=== PATIENT | male | born 1950 | race Caucasian/White ===

== ENCOUNTER 2016-11-26 09:00 | Inpatient (IN) | payer OTHER ==
[2016-11-18 15:24] LABS: BASOPHILS % (AUTO) 0.5 % (0.0-2.0); EOSINOPHILS # (AUTO) 0.2 K/uL (0.0-0.4); EOSINOPHILS % (AUTO) 2.5 % (0.0-4.0); HEMATOCRIT 39.4 % (36-54); HEMOGLOBIN 13.4 g/dL (14.0-18.0); LYMPHOCYTES # (AUTO) 2.4 K/uL (1.0-5.5); MEAN CORPUSCULAR HEMOGLOBIN 30 pg (27-31); MEAN CORPUSCULAR HGB CONC 34 % (32-36); MEAN CORPUSCULAR VOLUME 89 fL (79.0-98.0); MONOCYTES # (AUTO) 0.4 K/uL (0.0-1.0); MONOCYTES % (AUTO) 6.8 % (1.7-9.3); NEUTROPHILS # (AUTO) 3.4 K/uL (1.8-7.7); NEUTROPHILS % (AUTO) 53.2 % (40.0-70.0); PLATELET COUNT (AUTO) 374 K/uL (130-430); RED BLOOD CELL COUNT(AUTO) 4.41 MIL/uL (4.2-6.2); RED CELL DISTRIBUTION WIDTH 13.7 % (9.0-15.0); WHITE BLOOD COUNT (AUTO) 6.4 K/uL (4.8-10.8)
[2016-11-18 15:32] LABS: CALCIUM 9.5 mg/dL (8.4-11.0); CREATININE 0.77 mg/dL (0.55-1.30); POTASSIUM 4.4 mmol/L (3.5-5.1)
[2016-11-18 15:37] LABS: BILIRUBIN,URINE NEGATIVE (NEGATIVE); BLOOD, URINE NEGATIVE (NEGATIVE); COLOR,URINE YELLOW (YELLOW); GLUCOSE,URINE NEGATIVE (NEGATIVE); KETONES,URINE NEGATIVE (NEGATIVE); LEUKOCYTE ESTERASE ,URINE NEGATIVE (NEGATIVE); NITRITE, URINE NEGATIVE (NEGATIVE); PH,URINE 5.5 (5.0-8.0); PROTEIN URINE NEGATIVE (NEGATIVE); UROBILINOGEN,URINE 0.2 (0.2-1.0)
[2016-11-18 15:39] LABS: CLARITY/URINE CLEAR (CLEAR)
[~2016-11-26] VITALS: Ht 172.7 cm; Wt 79.8 kg
[2016-11-26] MEDS ORDERED: VANCOMYCIN HCL 1 GM/NS PREMIX 250 ML IV ONE (09:45)
[2016-11-26] MEDS ORDERED: ceFAZolin SODIUM 2 GM in D5W 100 ML IV ONE (09:45)
[2016-11-26] MEDS ORDERED: TRANEXAMIC ACID 1,000 MG/10 ML VIAL IV ONE ×2 (10:00→14:00)
[2016-11-26] MEDS ORDERED: POLYMYXIN 500,000/BACIT.10,000 UNITS in NS IRR 1 L IR ONE (11:14)
[2016-11-26] MEDS ORDERED: AMLO5TAB4 PO (12:45)
[2016-11-26] MEDS ORDERED: TOPXL100 PO (12:45)
[2016-11-26] MEDS ORDERED: ASPI-1063 PO (12:45)
[2016-11-26] MEDS ORDERED: LOSA100T11 PO (12:45)
[2016-11-26] MEDS ORDERED: FERR140T PO (12:46)
[2016-11-26] MEDS ORDERED: MORPHINE SULFATE 10MG/10ML PF AMP ONE (14:00)
[2016-11-26] MEDS ORDERED: NS 100 ML BAG IV ONE (14:00)
[2016-11-26] MEDS ORDERED: VANCOMYCIN HCL 1000 MG/VIAL IV ONE (14:00)
[2016-11-26] MEDS ORDERED: MIDAZOLAM HCL 5 MG/5 ML VIAL ONE (14:00)
[2016-11-26] MEDS ORDERED: PROPOFOL 200MG/ 20ML VIAL (DIPRIVAN) IV ONE (14:00)
[2016-11-26] MEDS ORDERED: NORMAL SALINE 10 ML VIAL ONE (14:00)
[2016-11-26] MEDS ORDERED: ONDANSETRON HCL 4 MG/2 ML VIAL ONE (14:00)
[2016-11-26] MEDS ORDERED: LR 1,000 ML IV.SOLN IV ONE (14:00)
[2016-11-26] MEDS ORDERED: LR 1,000 ML IV SCH (15:11)
[2016-11-26] MEDS ORDERED: NALOXONE HCL 0.4 MG/ML AMP (NARCAN) IVP PRN (15:15)
[2016-11-26] MEDS ORDERED: KETOROLAC TROMETHAMINE 60 MG/2 ML VIAL IM PRN (15:15)
[2016-11-26] MEDS ORDERED: DIPHENHYDRAMINE INJ 50 MG/ML VIAL IM PRN (15:15)
[2016-11-26] MEDS ORDERED: MORPHINE SULFATE 10MG/10ML PF AMP SP SCH (15:15)
[2016-11-26] MEDS ORDERED: METOCLOPRAMIDE HCL 10 MG/2 ML VIAL IVP PRN (15:15)
[2016-11-26] MEDS ORDERED: DIPHENHYDRAMINE HCL 25 MG CAPSULE PO PRN (16:00)
[2016-11-26] MEDS ORDERED: ONDANSETRON HCL 4 MG/2 ML VIAL IVP PRN (16:00)
[2016-11-26 17:30] VITALS: BP 130/51; PULSE 65; RESP 19; TEMP 97; O2SAT 97
[2016-11-26] MEDS: ONDANSETRON HCL 4 MG/2 ML VIAL IVP PRN ×2 (17:52→21:49)
--- NOTE | 2016-11-26 18:10 | NUR ---
CONSULTATION CALLED REASON FOR CONSULT: MED MANAGEMENT PERSON WHO WAS NOTIFIED: YARIEL FONTANEZ DR: FRIEDA PHONE NUMBER: [phone]
[2016-11-26] MEDS ORDERED: TRANEXAMIC ACID 1,000 MG in NS 50 ML IV ONE (19:00)
--- NOTE | 2016-11-26 19:00 | NUR ---
rounds rec patient asleep but arousable to stimuli.family in the room with patient. with ivf infusing well on the l hand. no infiltration noted. with o2 at 2 liters via nasal cannula. no sob noted. dressing on the r knee intact with polar care intact. hemovac in place. toes moving freely but warm to touch. bed in low position and side rails up and locked.call light with reached. will endorsed to public health program manager for admission, belongings, safety and dvt assessment.
--- NOTE | 2016-11-26 19:40 | NUR ---
ROUNDS PATIENT IN BED, AWAKE, ALERT, ORIENTED, VITALS STABLE. DENIES ANY PAIN AND DISCOMFORT AT THIS TIME. ASSESSMENT DONE AND DOCUMENTED. SEE FLOWSHEET. NEEDS ATTENDED TO. REPOSITIONED AND MADE COMFORTABLE. CALL LIGHT PLACED WITHIN REACH.
[2016-11-26] MEDS: SENNOSIDES 8.6 MG TABLET PO SCH (21:31)
[2016-11-26] MEDS: D5/0.45 NS 1,000 ML IV SCH (21:34)
[2016-11-26] MEDS: HYDROcodone/ACETAMIN 5-325 MG TAB (NORCO/ VICODIN) PO PRN (21:52)
--- NOTE | 2016-11-26 22:10 | NUR ---
DR. NOEL COHEN CALLED, UPDATES GIVEN. PATIENT TURNED AND REPOSITIONED FOR COMFORT. WILL CONTINUE TO MONITOR.
--- NOTE | 2016-11-27 00:10 | NUR ---
PATIENT RESTING: Patient resting quietly. No acute distress noted. Vital signs within normal range.
[2016-11-27 00:38] VITALS: BP 130/76; PULSE 65; RESP 18; TEMP 97.7; O2SAT 91
--- NOTE | 2016-11-27 02:00 | NUR ---
ROUNDS PATIENT ASLEEP, NO PAIN AND DISCOMFORT AT THIS TIME. WILL CONTINUE TO MONITOR.
--- NOTE | 2016-11-27 04:15 | NUR ---
PATIENT RESTING: Patient resting quietly. No acute distress noted. Vital signs within normal range.
[2016-11-27 04:48] VITALS: BP 123/78; PULSE 70; RESP 16; TEMP 97.8; O2SAT 93
[2016-11-27 06:10] LABS: BASOPHILS % (AUTO) 0.2 % (0.0-2.0); HEMATOCRIT 32.8 % (36-54); HEMOGLOBIN 11.1 g/dL (14.0-18.0); LYMPHOCYTES # (AUTO) 0.8 K/uL (1.0-5.5); LYMPHOCYTES % (AUTO) 8.7 % (20.5-51.5); MEAN CORPUSCULAR HEMOGLOBIN 31 pg (27-31); MEAN CORPUSCULAR HGB CONC 34 % (32-36); MEAN CORPUSCULAR VOLUME 91 fL (79.0-98.0); MONOCYTES # (AUTO) 0.9 K/uL (0.0-1.0); MONOCYTES % (AUTO) 10.5 % (1.7-9.3); NEUTROPHILS # (AUTO) 7.2 K/uL (1.8-7.7); NEUTROPHILS % (AUTO) 80.6 % (40.0-70.0); PLATELET COUNT (AUTO) 273 K/uL (130-430); RED BLOOD CELL COUNT(AUTO) 3.62 MIL/uL (4.2-6.2); RED CELL DISTRIBUTION WIDTH 13.2 % (9.0-15.0); WHITE BLOOD COUNT (AUTO) 8.9 K/uL (4.8-10.8)
--- NOTE | 2016-11-27 06:15 | NUR ---
CLOSING NOTES PATIENT RESTING COMFORTABLY IN BED, VITALS STABLE, DENIES ANY PAIN AND DISCOMFORT AT THIS TIME. ALL NEEDS ATTENDED TO. TURNED AND REPOSITIONED FOR COMFORT. SAFETY MEASURES MAINTAINED. CALL LIGHT PLACED WITHIN REACH.
[2016-11-27 06:45] LABS: CALCIUM 8.4 mg/dL (8.4-11.0); CREATININE 0.78 mg/dL (0.55-1.30); POTASSIUM 3.9 mmol/L (3.5-5.1)
--- NOTE | 2016-11-27 08:00 | NUR ---
PATIENT IN BED, A/OX4, MOHAWK SPEAKING. VITALS STABLE. NO SIGNS OF DISTRESS NOTED AT THIS TIME. CALL LIGHT IN PLACE, BED AT LOCKED AT LOWEST POSITION, WILL CONTINUE TO MONITOR.
--- NOTE | 2016-11-27 08:58 | NUR ---
DISCHARGE PLANNING DC planning to arrange home health PT and dressing changes. Faxed order to [phone]. CM to follow up with patient on needed DME. Will follow up. Addendum: 11/27/16 at 1042 by Halima Pacheco DP Met with patient and sister Liya at bedside. Liya stated patient has FWW to use at home and requested for 3in1 Commode. Liya also stated patient has a lot of help at home and someone is always home. Liya agreeable with arrangements that are going to be made with home health PT and dressing changes and bed side commode. Faxed DME order for 3in1 Commode to [facility] [phone] [phone]. Will follow up.
[2016-11-27] MEDS ORDERED: LOSARTAN POTASSIUM 50 MG TABLET (COZAAR) PO SCH (09:00)
[2016-11-27] MEDS ORDERED: LOSARTAN POTASSIUM 25 MG TABLET PO SCH (09:00)
[2016-11-27] MEDS: D5/0.45 NS 1,000 ML IV SCH (09:00)
[2016-11-27] MEDS ORDERED: amLODIPine BESYLATE 5 MG TABLET PO SCH (09:00)
[2016-11-27] MEDS ORDERED: METOPROLOL SUCCINATE 50 MG TAB.SR.24H (TOPROL XL) PO SCH (09:00)
--- NOTE | 2016-11-27 09:07 | NUR ---
Nutrition Update Thierry Scale 18 noted. Pt admitted for bilateral post-traumatic osteoarthritis of knee. Diet: regular BMI: 26.8 kg/m2 RD to follow per nutrition care standards.
[2016-11-27] MEDS: MULTIVITAMINS TAB 1 TABLET PO SCH (09:24)
[2016-11-27] MEDS: RIVAROXABAN 10 MG TABLET PO SCH (09:24)
[2016-11-27] MEDS: ASCORBIC ACID 500 MG TABLET PO SCH ×2 (09:25→21:37)
[2016-11-27] MEDS: METOPROLOL TARTRATE 50 MG TABLET PO SCH ×2 (09:25→21:38)
[2016-11-27] MEDS: FERROUS SULFATE 140 MG TABLET.ER PO SCH (09:26)
--- NOTE | 2016-11-27 10:35 | NUR ---
HR IN THE 130S. 5MG VERAPAMIL IVP IS GIVEN. WILL REASSESS. Addendum: 11/27/16 at 1855 by Jose F Danielson RN WRONG ENTRY
--- NOTE | 2016-11-27 11:13 | NUR ---
PATIENT IS RESTING, A-FIB ON MONITOR, NO SIGNS OF DISTRESS NOTED. TURNED AND REPOSITIONED FOR COMFORT. Addendum: 11/27/16 at 1855 by Jose F Danielson RN WRONG ENTRY
[2016-11-27] MEDS: HYDROcodone/ACETAMIN 5-325 MG TAB (NORCO/ VICODIN) PO PRN ×2 (11:15→16:06)
[2016-11-27 11:44] VITALS: BP 124/75; PULSE 82; RESP 19; TEMP 98.8; O2SAT 97
--- NOTE | 2016-11-27 12:15 | NUR ---
PATIENT RECEIVES PT. TOLERATED WELL, NO SIGNS OF DISTRESS NOTED.
--- NOTE | 2016-11-27 13:44 | NUR ---
PATIENT IS RESTING, WITH FAMILY AT BEDSIDE.
--- NOTE | 2016-11-27 14:30 | NUR ---
PHYSICAL THERAPY CO-SIGN The Physical Therapy Progress Notes documented by Job Tracer have been reviewed. Reviewed/Co-Signed by: Brianna Steele,PT Documentation Done by: Kyle Childress PTA I concur with the documentation of this MAILING MANAGER. Plan: continue PT as per plan of care. Addendum: 11/28/16 at 1458 by Brianna Steele PT Amended: Links added.
[2016-11-27 15:33] VITALS: BP 126/74; PULSE 75; RESP 19; TEMP 97.5; O2SAT 94
--- NOTE | 2016-11-27 16:10 | NUR ---
PATIENT IS C/O RIGHT KNEE PAIN. NORCO 5 IS GIVEN PO. WILL REASSESS.
--- NOTE | 2016-11-27 16:22 | NUR ---
Discharge Planning: NURSE MIDWIFE has faxed DME order to [facility] ([phone] f.[phone]) for 3:1 commode. NURSE MIDWIFE will follow up to see when DME will be delivered.
[2016-11-27] MEDS ORDERED: MORPHINE 4 MG/ML INJ. SYRINGE IVP PRN (18:15)
--- NOTE | 2016-11-27 18:25 | NUR ---
PATIENT STATES THE PAIN IS AT 5-6/[address] DESP[address] THE NORCO [address]. [address] COHEN IS CALLED. AWAITING CALL BACK.
--- NOTE | 2016-11-27 19:00 | NUR ---
DR. COHEN CALLED BACK. ORDERS WERE GIVEN; ALSO ADVISED TO MAINTAIN TELE DUE TO POSSIBLE RISK OF VASOVAGAL RESPONSE FROM PATIENT.
--- NOTE | 2016-11-27 19:35 | NUR ---
BEDSIDE REPORT TAKEN FROM TRISTON TRISTAN.MANY FAMILIES /FRIENDS AT BEDSIDE.HAS HEMOVAC WITH DARK BLOODY COLOR,JUST EMPTIED BY TRISTON TRISTAN ,IVF INFUSING WELL.BOTH FEET MOVES ON COMMAND ,SKIN WARM AND DRY. LEVNIE CATH ON. NO SCD TO LEFT LEG.
[2016-11-27 20:45] VITALS: BP 144/82; PULSE 94; RESP 20; TEMP 99.8; O2SAT 95
[2016-11-27 20:50] VITALS: BP 144/82; PULSE 94; RESP 18; TEMP 99.8; O2SAT 95
--- NOTE | 2016-11-27 20:50 | NUR ---
PM ASSESSMENT: AWAKE .ALERT ORIENTED X4, IN BED,AZERBAIJANI SPEAKING ,SISTER AND FAMILIES AT BEDSIDE TO INTERPRET TEACHINGS WITH UNDERSTANDING. USE OF INCENTIVE SPIROMETER. TURNING. MOVING TOES /FEET SPONTANEOUSLY, NUTRITION/ IVF/ PAIN MEDS/LEVINE CARE. VITAL SIGNS TAKEN. TEMP 99.8. HAS TOLERABLE POST OP PAIN. ON POLAR ICE CARE. DRESSING TO LEFT KNEE DRY AND INTACT.HEMOVAC IN SUCTION. DRAINING LEVINE IN PLACE,LARGE AMT. TOLERATING FLUIDS WELL. MOVES TOES FREELY. SINUS RHYTHM ON TELE MONITOR. HEELS ON PILLOW TO EXTEND KNEE. CALL LIGHT WITHIN REACH .BED IN LOW POSITION. WILL MONITOR CLOSELY.
--- NOTE | 2016-11-27 21:35 | NUR ---
MEDS ADMIN/PAIN MED/ACTIVITY: HAS POST OP PAIN LEVEL 7/10. NORCO 10MG WITH REST OF EVENING MEDS GIVEN WITH OUT DIFFICULTY.TAUGHT PATIENT AND FAMILIES EFFECTS AND SIDE EFFECTS OF ALL MEDS .USED IS X2 SINCE REPORT, DOING THIS TIME..
[2016-11-27] MEDS: HYDROcodone/ACETAMIN 10-325 MG TAB PO PRN (21:36)
[2016-11-27] MEDS: LOSARTAN POTASSIUM 50 MG TABLET (COZAAR) PO SCH (21:37)
[2016-11-27] MEDS: SENNOSIDES 8.6 MG TABLET PO SCH (21:37)
--- NOTE | 2016-11-27 23:30 | NUR ---
FEVER: TEMP 102.2 HR 86 SAT.97%. TOLD FAMILY WILL CALL MD.USE INCENTIVE SPIROMETER.
--- NOTE | 2016-11-27 23:49 | NUR ---
MD PEREZ CALLED JULIETA HERNANDEZ AT [phone] SPOKE WITH BRENDA.
--- NOTE | 2016-11-27 23:55 | NUR ---
NOTIFIED: JULIETA FAIRBANKS CALLED BACK. INFORMED CURRENT TEMP. AND CONDITION,WITH ORDERS.NO SEPSIS PROTOCOL.
[2016-11-28] MEDS ORDERED: ACETAMINOPHEN 325 MG TABLET PO PRN
[2016-11-28 00:20] VITALS: BP 123/73; PULSE 86; RESP 18; TEMP 102.8; O2SAT 97
--- NOTE | 2016-11-28 00:40 | NUR ---
TYLENOL 650MG PO GIVEN ORDERED. URINE COLLECTED VIA LEVINE CATH. REPOSITIONED FOR COMFORT.
[2016-11-28] MEDS: D5/0.45 NS 1,000 ML IV SCH (00:55)
--- NOTE | 2016-11-28 01:30 | NUR ---
ROUNDS: RESTING QUIETELY WITH EYES CLOSE. SISTER AT BEDSIDE.
[2016-11-28 01:31] LABS: BILIRUBIN,URINE NEGATIVE (NEGATIVE); BLOOD, URINE 3+ (NEGATIVE); CLARITY/URINE SL HAZY (CLEAR); COLOR,URINE YELLOW (YELLOW); GLUCOSE,URINE NEGATIVE (NEGATIVE); KETONES,URINE NEGATIVE (NEGATIVE); LEUKOCYTE ESTERASE ,URINE NEGATIVE (NEGATIVE); NITRITE, URINE NEGATIVE (NEGATIVE); PROTEIN URINE NEGATIVE (NEGATIVE); UROBILINOGEN,URINE 0.2 (0.2-1.0)
[2016-11-28 02:07] LABS: BACTERIA,URINE FEW /HPF (None Seen); MUCUS,URINE None Seen /LPF (None Seen); RBC,URINE 20-50 /HPF (0-3); WBC,URINE 0-3 /HPF (0-3)
--- NOTE | 2016-11-28 03:30 | NUR ---
VITAL SIGNS STABLE. NO FEVER THIS TIME. IS USED.
[2016-11-28 04:02] VITALS: BP 122/75; PULSE 76; RESP 18; TEMP 98.2; O2SAT 95
--- NOTE | 2016-11-28 06:25 | NUR ---
LEVINE D/C: REMOVED LEVINE CATHETER AFTER DEFLATING BALLOON. TIP INTACT.INSTRUCTED HOW TO USE URINAL IF HAS URGE TO VOID WITH UNDERSTANDING,
[2016-11-28 06:29] LABS: BASOPHILS % (AUTO) 0.2 % (0.0-2.0); EOSINOPHILS % (AUTO) 0.2 % (0.0-4.0); HEMATOCRIT 31.4 % (36-54); HEMOGLOBIN 10.6 g/dL (14.0-18.0); LYMPHOCYTES # (AUTO) 1.2 K/uL (1.0-5.5); LYMPHOCYTES % (AUTO) 10.5 % (20.5-51.5); MEAN CORPUSCULAR HEMOGLOBIN 31 pg (27-31); MEAN CORPUSCULAR HGB CONC 34 % (32-36); MEAN CORPUSCULAR VOLUME 91 fL (79.0-98.0); MONOCYTES # (AUTO) 1.2 K/uL (0.0-1.0); MONOCYTES % (AUTO) 10.9 % (1.7-9.3); NEUTROPHILS % (AUTO) 78.2 % (40.0-70.0); PLATELET COUNT (AUTO) 243 K/uL (130-430); RED BLOOD CELL COUNT(AUTO) 3.46 MIL/uL (4.2-6.2); RED CELL DISTRIBUTION WIDTH 12.9 % (9.0-15.0); WHITE BLOOD COUNT (AUTO) 11.4 K/uL (4.8-10.8)
[2016-11-28 06:37] LABS: CALCIUM 8.8 mg/dL (8.4-11.0); CREATININE 0.88 mg/dL (0.55-1.30); POTASSIUM 3.9 mmol/L (3.5-5.1)
--- NOTE | 2016-11-28 06:45 | NUR ---
CLOSING: ALL NEEDS WERE MET. INCENTIVE SPIROMETER USED UP TO 1500NL. ENCOURAGED TO DO HRLY X10 WHILE AWAKE. SISTER SAID SHE MAKE SURE HE WILL DO IT.HEMOVAC WITH BLOODY OUTPUT. REFUSE PAIN MED THIS AM. HE WILL HAVE WITH BREAKFAST. CALL LIGHT WITHIN REACH. MOVES TOES FREELY.
--- NOTE | 2016-11-28 07:40 | NUR ---
MD ROUNDS DR. COHEN HERE AND CHANGED DRESSING ON THE RT KNEE AND REMOVED HEMOVAC. AWARE OF PT FEVER LAST NIGHT AND HEMOVAC OUTPUT.
[2016-11-28 08:00] VITALS: BP 142/80; PULSE 85; RESP 17; TEMP 98.2; O2SAT 95
--- NOTE | 2016-11-28 08:01 | NUR ---
AM NOTES IN BED, AWAKE, ALERT AND ORIENTED. SPEAK BENGALI ONLY. FAMILY AT BEDSIDE. COMPLAIN OD MODERATE PAIN. WILL MEDICATED. IVF INFUSING WELL. USES INCENTIVE SPIROMETER. AFEBRILE AT THIS TIME. WILL MONITOR.
[2016-11-28] MEDS: LOSARTAN POTASSIUM 50 MG TABLET (COZAAR) PO SCH ×2 (08:20→21:15)
[2016-11-28] MEDS: METOPROLOL TARTRATE 50 MG TABLET PO SCH ×2 (08:20→21:14)
[2016-11-28] MEDS: MULTIVITAMINS TAB 1 TABLET PO SCH (08:21)
[2016-11-28] MEDS: ASCORBIC ACID 500 MG TABLET PO SCH ×2 (08:21→21:15)
--- NOTE | 2016-11-28 08:46 | NUR ---
Discharge Planning: TIN WORKER contacted [facility] ([phone]); TIN WORKER spoke to Miroslava who states that the pt's information has been received and they are checking eligibility; Miroslava states that they will call back to confirm pt's dc date.
[2016-11-28] MEDS: RIVAROXABAN 10 MG TABLET PO SCH (10:17)
[2016-11-28] MEDS: HYDROcodone/ACETAMIN 10-325 MG TAB PO PRN ×2 (10:18→21:14)
--- NOTE | 2016-11-28 10:24 | NUR ---
PAIN IN BED, COMPLAIN OF RT KNEE PAIN. PT REPOSITIONED FRO COMFORT AND MEDICATED ORDERED. THERAPY HERE AT THIS TIME TO WORK WITH PT. NO DISTRESS NOTED.
[2016-11-28] MEDS: FERROUS SULFATE 140 MG TABLET.ER PO SCH (12:20)
[2016-11-28 12:27] VITALS: BP 120/63; PULSE 78; RESP 17; TEMP 99.3; O2SAT 95
--- NOTE | 2016-11-28 12:28 | NUR ---
ROUNDS In bed eating lunch. Pain is controlled at this time. comfortable.Enc. pt and family to call for help at all times. call light in reach.
--- NOTE | 2016-11-28 13:57 | NUR ---
md rounds seen by Dr. dodd at bedside.
[2016-11-28] MEDS ORDERED: BISACODYL 10 MG/SUPPOSITORY RC PRN (14:00)
--- NOTE | 2016-11-28 14:30 | NUR ---
PHYSICAL THERAPY CO-SIGN The Physical Therapy Progress Notes documented by Strip Deburrer have been reviewed. Reviewed/Co-Signed by: Brianna Steele, PT Documentation Done by: Kyle Childress PTA I concur with the documentation of this BASE CLOTH INSPECTOR. Plan: continue PT as per plan of care. Addendum: 11/28/16 at 1459 by Brianna Steele PT Amended: Links added.
[2016-11-28] MEDS ORDERED: POLYETHYLENE GLYCOL 3350, 17 GM/ POWD.PACK PO ONE (15:30)
--- NOTE | 2016-11-28 16:07 | NUR ---
NOTES RESTING IN BED, PAIN IS CONTROLLED. NO ACUTE DISTRESS NOTED. REPOSITIONED WITH COMFORT. VOIDING WELL USING URINAL.
[2016-11-28 16:32] VITALS: BP 124/69; PULSE 72; RESP 16; TEMP 98.6; O2SAT 97
--- NOTE | 2016-11-28 18:27 | NUR ---
NOTES IN BED, RESTING. FAMILY AT BEDSIDE. PAIN IS CONTROLLED AT THIS TIME. KEEP IVL. ABLE TO MOVE BOTH TOES. NO DISTRESS NOTED. ALL NEEDS MEET. WILL ENDORSE
--- NOTE | 2016-11-28 19:15 | NUR ---
BEDSIDE REPORT RECEIVED FROM TRISTON HENDRICKS. PATIENT SLEEPING ,BREATHING REGULARLY. FAMILIES AT BEDSIDE.
--- NOTE | 2016-11-28 21:00 | NUR ---
FAMILY CALLED .PATIENT WOKE UP WITH FRONTAL AND RIGHT KNEE PAIN.
[2016-11-28 21:10] VITALS: BP 139/80; PULSE 100; RESP 20; TEMP 100.8; O2SAT 96
[2016-11-28] MEDS: SENNOSIDES 8.6 MG TABLET PO SCH (21:15)
--- NOTE | 2016-11-28 21:15 | NUR ---
TEMP.100.8. SKIN FEELS MODERATE WARM ,DRY AND INTACT.
--- NOTE | 2016-11-28 21:20 | NUR ---
INITIAL NOTES/MEDS ADMIN: NORCO 10MG PO FOR PAIN AND DUE MEDS ALL GIVEN. REPOSITION FOR COMFORT. COLD COMPRESS PLACED TO FOREHEAD TO HELP REDUCE FEVER.SALINE FLUSHED EASILY. DECREASED BREATH SOUNDS AT LOWER BASES.INCENTIVE SPIROMETER USED UP TO 2000 X10, THIS TIME. [facility] ICE IN PLACE TO RIGHT. DRESSING DRY AND INTACT. RIGHT HEEL ON A PILLOW. HAS PLEXI PULSE TO BOTH FEET. DRINKING FLUIDS WELL. CALL LIGHT WITHIN REACH .BED IN LOW POSITION.NON TELE STATUS.
--- NOTE | 2016-11-28 23:00 | NUR ---
ROUNDS: PATIENT RESTING QUITELY. NO DISTRESS.
[2016-11-29] VITALS (8 sets, daily range): BP systolic 112–144; BP diastolic 65–88; PULSE 70–90; RESP 16–18; TEMP 98–99.7; O2SAT 95–100
--- NOTE | 2016-11-29 00:30 | NUR ---
VITAL SIGNS: TEMP. 99.2 STATED COMFORTABLE.
--- NOTE | 2016-11-29 04:10 | NUR ---
ROUNDS: AWAKENED. VITAL SIGNS TAKEN. NO FEVER. OFFERED PAIN MED.SAID LATER.
[2016-11-29 06:21] LABS: CALCIUM 8.7 mg/dL (8.4-11.0); CREATININE 0.83 mg/dL (0.55-1.30); POTASSIUM 3.7 mmol/L (3.5-5.1)
--- NOTE | 2016-11-29 06:30 | NUR ---
CLOSING: ALL NEEDS WERE ATTENDED. NO HEADACHE THIS AM. AFEBRILE. WOUND DRESSING DRY AND INTACT. WITH POLAR CARE ICE. NO ACUTE DISTRESS.
[2016-11-29 06:49] LABS: BASOPHILS % (AUTO) 0.3 % (0.0-2.0); EOSINOPHILS % (AUTO) 0.3 % (0.0-4.0); HEMATOCRIT 30.8 % (36-54); HEMOGLOBIN 10.4 g/dL (14.0-18.0); LYMPHOCYTES # (AUTO) 1.6 K/uL (1.0-5.5); LYMPHOCYTES % (AUTO) 13.6 % (20.5-51.5); MEAN CORPUSCULAR HEMOGLOBIN 31 pg (27-31); MEAN CORPUSCULAR HGB CONC 34 % (32-36); MEAN CORPUSCULAR VOLUME 92 fL (79.0-98.0); MONOCYTES # (AUTO) 1.2 K/uL (0.0-1.0); MONOCYTES % (AUTO) 10.2 % (1.7-9.3); NEUTROPHILS # (AUTO) 8.8 K/uL (1.8-7.7); NEUTROPHILS % (AUTO) 75.6 % (40.0-70.0); PLATELET COUNT (AUTO) 255 K/uL (130-430); RED BLOOD CELL COUNT(AUTO) 3.36 MIL/uL (4.2-6.2); RED CELL DISTRIBUTION WIDTH 13.1 % (9.0-15.0); WHITE BLOOD COUNT (AUTO) 11.6 K/uL (4.8-10.8)
--- NOTE | 2016-11-29 07:22 | NUR ---
rn notes: patient is aaox 4. afebrile. vss stable. patient speaks moldovan no pain at this time. stable. family at the bedside.has saline lock lt hand #18. dry and intact. has dressing rt knee wi/polar care attached. has plexi pulse on.
--- NOTE | 2016-11-29 08:35 | NUR ---
Discharge Planning: KAIT contacted [facility] and spoke to Vivian; KAIT contacted [facility] several times on 11/28/16 and was told they were having problems with their system and could not verify pt's insurance. KAIT spoke to Vivian this morning who stated that they would be unable to service pt due to pt's Medicare address is in [place] and due to it being [facility] the [employer] company would need to be a agency who has the [facility] competitive bid. KAIT has faxed pt[facility] information to [facility] ([phone] f.[phone]). KAIT will follow up with [facility] to see if they can deliver 3:1 today to pt. KAIT has left a message for pt's sister to confirm pt's address. Addendum: 11/29/16 at 1106 by Akanksha Campbell LCSW Pt's correct address is: [address] [place] [address] [address], [place] [address]. [facility] in [place] is working on supplying pt's 3:1 commode ([phone] f.[phone]). KAIT has updated Chacha at [facility] of correct address; she is working on verifying pt's insurance. KAIT will follow up to see if pt will receive 3:1 commode today. Addendum: 11/29/16 at 1622 by Akanksha Campbell LCSW [facility] received form for Dr. Smith to sign for pt's 3:1 commode. [facility] has placed form on pt's chart for doctor to sign. One form is signed form needs to be faxed back to [facility] ([phone] f.[phone]). [facility] will contact pt's family to arrange for deliver of 3:1 commode and/or to alert pt's family of any charge/co pay.
[2016-11-29] MEDS: FERROUS SULFATE 140 MG TABLET.ER PO SCH (08:46)
[2016-11-29] MEDS: LOSARTAN POTASSIUM 50 MG TABLET (COZAAR) PO SCH (08:50)
[2016-11-29] MEDS: ASCORBIC ACID 500 MG TABLET PO SCH (08:50)
[2016-11-29] MEDS: HYDROcodone/ACETAMIN 10-325 MG TAB PO PRN ×2 (08:50→14:31)
[2016-11-29] MEDS: METOPROLOL TARTRATE 50 MG TABLET PO SCH (08:51)
--- NOTE | 2016-11-29 08:56 | NUR ---
due medication given as this time. made comfortable. assists on adls
[2016-11-29] MEDS ORDERED: POLYETHYLENE GLYCOL 3350, 17 GM/ POWD.PACK PO SCH (09:00)
[2016-11-29] MEDS: MULTIVITAMINS TAB 1 TABLET PO SCH (09:00)
--- NOTE | 2016-11-29 11:01 | NUR ---
DISCHARGE PLANNING NOTE: KAIT received a voice mail from Annelise at [facility] ([phone]/ fax- [phone]). Annelise states that services will begin on 11/30/16 and Physical Therapy will visit pt on 12/01/16. Annelise requested for pt's physical therapy notes to be faxed. KAIT faxed pt's physical therapy notes. KAIT called and left a voice mail for Annelise to confirm that her voice mail was received. Addendum: 11/29/16 at 1521 by Cassia Robison LCSW KAIT met with pt and pt's sister, Liya, at bedside. KAIT provided pt with the contact information for [facility] and [facility] for [facility] [place]. Pt and pt's sister did not express any other needs or concerns at this time. Addendum: 11/29/16 at 1719 by Cassia Robison LCSW QUANTITATIVE RESEARCH ANALYST faxed DME form that was signed by Dr. Smith to [facility] ([phone]/ phone- [phone]).
[2016-11-29] MEDS: RIVAROXABAN 10 MG TABLET PO SCH (12:40)
--- NOTE | 2016-11-29 12:41 | NUR ---
patient stable. no pain nor distress noted. had just finish eating lunch. sitting on the chair. sister at the bedside.
--- NOTE | 2016-11-29 15:10 | NUR ---
Dr Hickman came and discharge order made.
[2016-11-29] MEDS ORDERED: HYDR-4100 PO (15:15)
--- NOTE | 2016-11-29 15:15 | NUR ---
dressing on rt knee done as per Dr Smith protocol order.
--- NOTE | 2016-11-29 15:16 | NUR ---
[facility] [employer] came informed sister everything was arranged for home health.
--- NOTE | 2016-11-29 16:08 | NUR ---
PHYSICAL THERAPY CO-SIGN The Physical Therapy Progress Notes documented by Breaker Boss have been reviewed. Reviewed/Co-Signed by: Nina Sarmiento Documentation Done by:ZOYA COLEY CIGAR MAKER Addendum: 11/29/16 at 1608 by Nina Sarmiento PT Amended: Links added.
--- NOTE | 2016-11-29 16:08 | NUR ---
PHYSICAL THERAPY CO-SIGN The Physical Therapy Progress Notes documented by Splitter Head have been reviewed. Reviewed/Co-Signed by: Nina Sarmiento Documentation Done by: ZOYA COLEY PTA POC REVIEWED W/ RN CLINICAL COORDINATOR; WILL BENEFIT W/ P.T. Addendum: 11/29/16 at 1608 by Nina Sarmiento PT Amended: Links added.
--- NOTE | 2016-11-29 17:00 | NUR ---
Dr Smith came and evaluate the patient. gave prescription for pain norco po and dr dodd for xarelto for 10 days i tablet daily.
--- NOTE | 2016-11-29 18:00 | NUR ---
transitional care discharge given to the patient. explained regarding the return follow up with Dr Smith in [address] Hickman in two weeks time. explained the medication one by one with indication.side effects, dosage and frequency. saline lock removed. scdh id band removed.
--- NOTE | 2016-11-29 18:15 | NUR ---
offered socks bilaterally. blue socks/shoes given.
--- NOTE | 2016-11-29 18:49 | NUR ---
patient left in wheelchair with Lori Spauldinga. in stable condition with the sister and .
--- NOTE | 2016-12-02 14:44 | NUR ---
DISCHARGE PLANNING Faxed requested progress notes to [facility]. Called and spoke with Larissa at [facility] [phone] who stated patient does not qualify for 3in1 commode. SHANTA Antony made aware and will follow up with patient/family. Addendum: 12/03/16 at 1416 by Halima Pacheco DP Received call from home health nurse from [facility] who was updated with requested DME order and will notify patient/family.
--- NOTE | 2016-12-03 15:50 | NUR ---
Discharge Follow Up Phone Call Business Line Controller phoned patient, , and left a voicemail message on 12/02/16. Treasury Director Joann was notified by [facility] that patient does not have the phone as it was mistakenly taken to [place]. Home care nurse will notify patient that he does not qualify for the 3 in 1. MOLD CONSTRUCTION SUPERVISOR phoned [facility] later in the day and spoke with patient's nurse, Annelise. Patient is doing well and was notified about the 3 in . The family plans to obtain one and was informed about the convalescent aid society. Patient filled his prescriptions and is taking them as directed. All follow up appointments have been made. There are no questions or concerns.
== END 2016-11-29 18:34 | disposition home health service (06) | DRG 470 ==
LOC: SMU 09:00 → STU 20:13 → SMU 11-28 23:15
PROVIDERS: ADMIT Orthopaedic Surgery; ATTEND Orthopaedic Surgery
PROC: 0SRC0J9 Replacement of Right Knee Joint with Synthetic Substitute, Cemented, Open Approach (ICD-10-PCS; principal; 2016-11-26 12:00)
DX: M17.11 Unilateral primary osteoarthritis, right knee (principal); J98.11 Atelectasis; I11.9 Hypertensive heart disease without heart failure; I44.1 Atrioventricular block, second degree; Z79.899 Other long term (current) drug therapy; Z79.82 Long term (current) use of aspirin; Z87.891 Personal history of nicotine dependence; Z83.2 Family history of diseases of the blood and blood-forming organs and certain disorders involving the immune mechanism
CPT/HCPCS: 36415; 71020-TC; 73560-TC; 80048; 81000-TC; 81003; 85025; 86886; 86900; 86901; 86920; 87081; 88305; 88311; 94010; 97110-GP; 97116-GP; 97530-GP; C1713; C1776; J0690; J1200; J2250; J2270; J2274; J2405; J2704; J3370; J3490; J7060; J7120; Q0163

== ENCOUNTER 2017-05-27 09:39 | Inpatient (IN) | payer OTHER ==
[2017-05-19 14:56] LABS: BILIRUBIN,URINE NEGATIVE (NEGATIVE); BLOOD, URINE NEGATIVE (NEGATIVE); CLARITY/URINE CLEAR (CLEAR); COLOR,URINE YELLOW (YELLOW); GLUCOSE,URINE NEGATIVE (NEGATIVE); KETONES,URINE NEGATIVE (NEGATIVE); LEUKOCYTE ESTERASE ,URINE NEGATIVE (NEGATIVE); NITRITE, URINE NEGATIVE (NEGATIVE); PROTEIN URINE NEGATIVE (NEGATIVE); UROBILINOGEN,URINE 0.2 (0.2-1.0)
[2017-05-19 14:59] LABS: BASOPHILS % (AUTO) 0.2 % (0.0-2.0); EOSINOPHILS # (AUTO) 0.1 K/uL (0.0-0.4); EOSINOPHILS % (AUTO) 2.1 % (0.0-4.0); HEMATOCRIT 37.8 % (36-54); HEMOGLOBIN 12.6 g/dL (14.0-18.0); LYMPHOCYTES # (AUTO) 1.5 K/uL (1.0-5.5); LYMPHOCYTES % (AUTO) 26.9 % (20.5-51.5); MEAN CORPUSCULAR HEMOGLOBIN 30 pg (27-31); MEAN CORPUSCULAR HGB CONC 33 % (32-36); MEAN CORPUSCULAR VOLUME 91 fL (79.0-98.0); MONOCYTES # (AUTO) 0.6 K/uL (0.0-1.0); MONOCYTES % (AUTO) 10.3 % (1.7-9.3); NEUTROPHILS # (AUTO) 3.3 K/uL (1.8-7.7); NEUTROPHILS % (AUTO) 60.5 % (40.0-70.0); PLATELET COUNT (AUTO) 272 K/uL (130-430); RED BLOOD CELL COUNT(AUTO) 4.18 MIL/uL (4.2-6.2); RED CELL DISTRIBUTION WIDTH 14.6 % (9.0-15.0); WHITE BLOOD COUNT (AUTO) 5.5 K/uL (4.8-10.8)
[2017-05-19 15:21] LABS: CALCIUM 9.4 mg/dL (8.4-11.0); CREATININE 0.67 mg/dL (0.55-1.30); POTASSIUM 3.7 mmol/L (3.5-5.1)
[~2017-05-27] VITALS: Ht 167.6 cm; Wt 75.7 kg
[~2017-05-27 09:39] MED LIST: AMLO5TAB4 PO; FERR140T PO; HYDR-4100 PO; LOSA100T11 PO; TOPXL100 PO
[2017-05-27] MEDS ORDERED: VANCOMYCIN HCL 1,000 MG in NS 250 ML IV ONE (10:00)
[2017-05-27] MEDS ORDERED: CEFAZOLIN SOD 2 GM in D5W 50 ML IV ONE (10:15)
[2017-05-27] MEDS ORDERED: TRANEXAMIC ACID 1,000 MG/10 ML VIAL IV ONE ×2 (10:15→11:28)
[2017-05-27] MEDS ORDERED: LIP40 PO (10:53)
[2017-05-27] MEDS ORDERED: ASPI-1063 PO (10:53)
[2017-05-27] MEDS ORDERED: POLYMYXIN 500,000/BACIT.10,000 UNITS in NS IRR 1 L IR ONE (11:11)
[2017-05-27] MEDS ORDERED: fentaNYL CITRATE 250 MCG/5 ML AMP IV ONE (11:28)
[2017-05-27] MEDS ORDERED: ROPIVACAINE 0.2% (NAROPIN) PF SOLUTION 100 ML BOTTLE EP ONE (11:28)
[2017-05-27] MEDS ORDERED: NS 100 ML BAG IV ONE (11:28)
[2017-05-27] MEDS ORDERED: VANCOMYCIN HCL 1000 MG/VIAL IV ONE (11:28)
[2017-05-27] MEDS ORDERED: MIDAZOLAM HCL 5 MG/5 ML VIAL IVP ONE (11:28)
[2017-05-27] MEDS ORDERED: PROPOFOL 200MG/ 20ML VIAL (DIPRIVAN) IV ONE (11:28)
[2017-05-27] MEDS ORDERED: ROPIVACAINE HCL/PF 5 MG/ML 0.5% 30 ML VIAL INJ ONE (11:28)
[2017-05-27] MEDS ORDERED: LR 1,000 ML IV.SOLN IV ONE (11:28)
[2017-05-27] MEDS ORDERED: DEXAMETHASONE SOD PHOSPHATE 4 MG/ML VIAL IVP ONE (11:28)
[2017-05-27] MEDS ORDERED: SEVOFLURANE 15 MIN GAS INH ONE (11:28)
[2017-05-27] MEDS ORDERED: NORMAL SALINE 10 ML VIAL IVP ONE (11:28)
[2017-05-27] MEDS ORDERED: METOCLOPRAMIDE HCL 10 MG/2 ML VIAL IVP ONE (11:28)
[2017-05-27] MEDS ORDERED: LR 1,000 ML IV ONE (13:38)
[2017-05-27] MEDS ORDERED: DIPHENHYDRAMINE INJ 50 MG/ML VIAL IVP PRN (13:45)
[2017-05-27] MEDS ORDERED: KETOROLAC TROMETHAMINE 30 MG VIAL IM PRN (13:45)
[2017-05-27] MEDS ORDERED: fentaNYL CITRATE/PF 100 MCG/2 ML AMP IVP PRN (13:45)
[2017-05-27] MEDS ORDERED: NALBUPHINE HCL 10 MG/ML AMP IVP PRN (13:45)
[2017-05-27] MEDS ORDERED: ePHEDrine sulfate 50 MG/ML VIAL IVP PRN (13:45)
[2017-05-27] MEDS ORDERED: ONDANSETRON HCL 4 MG/2 ML VIAL IVP PRN ×3 (13:45→14:30)
[2017-05-27] MEDS ORDERED: NALOXONE HCL 0.4 MG/ML AMP (NARCAN) IVP PRN (13:45)
[2017-05-27] MEDS ORDERED: DIPHENHYDRAMINE HCL 25 MG CAPSULE PO PRN (14:30)
[2017-05-27 16:16] VITALS: BP_SYST 119
[2017-05-27 17:08] VITALS: BP_SYST 128
[2017-05-27 17:16] VITALS: BP_SYST 128
[2017-05-27] MEDS: KETOROLAC TROMETHAMINE 15 MG VIAL IVP SCH (18:44)
[2017-05-27] MEDS: D5/0.45 NS 1,000 ML IV SCH ×2 (18:44→22:16)
[2017-05-27 20:00] VITALS: BP_SYST 128
[2017-05-27] MEDS ORDERED: HYDROcodone/ACETAMIN 5-325 MG TAB (NORCO/ VICODIN) PO PRN (20:00)
[2017-05-27] MEDS ORDERED: ACETAMINOPHEN 500 MG TABLET PO PRN (20:00)
[2017-05-27] MEDS ORDERED: FLU VACC QS 2017-18(36MOS+)/PF 0.5 ML/SYR SYRINGE I.M. PRN (20:15)
[2017-05-27] MEDS ORDERED: TRANEXAMIC ACID 1,000 MG in NS 50 ML IV ONE (20:15)
[2017-05-27] MEDS: SENNOSIDES 8.6 MG TABLET PO SCH (21:05)
[2017-05-28] MEDS: KETOROLAC TROMETHAMINE 15 MG VIAL IVP SCH ×2 (00:21→06:02)
[2017-05-28 00:27] VITALS: BP_SYST 117
[2017-05-28] MEDS: D5/0.45 NS 1,000 ML IV SCH ×2 (03:08→22:16)
[2017-05-28 03:40] VITALS: BP_SYST 117
[2017-05-28 06:27] LABS: BASOPHILS % (AUTO) 0.1 % (0.0-2.0); EOSINOPHILS % (AUTO) 0.1 % (0.0-4.0); HEMATOCRIT 29.9 % (36-54); HEMOGLOBIN 9.9 g/dL (14.0-18.0); LYMPHOCYTES # (AUTO) 1.2 K/uL (1.0-5.5); LYMPHOCYTES % (AUTO) 12.9 % (20.5-51.5); MEAN CORPUSCULAR HEMOGLOBIN 30 pg (27-31); MEAN CORPUSCULAR HGB CONC 33 % (32-36); MEAN CORPUSCULAR VOLUME 91 fL (79.0-98.0); MONOCYTES # (AUTO) 1.1 K/uL (0.0-1.0); MONOCYTES % (AUTO) 11.6 % (1.7-9.3); NEUTROPHILS # (AUTO) 7.1 K/uL (1.8-7.7); NEUTROPHILS % (AUTO) 75.3 % (40.0-70.0); PLATELET COUNT (AUTO) 254 K/uL (130-430); RED BLOOD CELL COUNT(AUTO) 3.28 MIL/uL (4.2-6.2); RED CELL DISTRIBUTION WIDTH 14.2 % (9.0-15.0); WHITE BLOOD COUNT (AUTO) 9.4 K/uL (4.8-10.8)
[2017-05-28 06:33] LABS: CALCIUM 8.9 mg/dL (8.4-11.0); CREATININE 0.69 mg/dL (0.55-1.30); POTASSIUM 3.8 mmol/L (3.5-5.1)
[2017-05-28 08:00] VITALS: BP_SYST 128
[2017-05-28] MEDS: RIVAROXABAN 10 MG TABLET PO SCH (09:24)
[2017-05-28] MEDS: LOSARTAN POTASSIUM 50 MG TABLET (COZAAR) PO SCH (09:25)
[2017-05-28] MEDS: MULTIVITAMINS TAB 1 TABLET PO SCH (09:26)
[2017-05-28] MEDS: amLODIPine BESYLATE 5 MG TABLET PO SCH (09:26)
[2017-05-28] MEDS: ASCORBIC ACID 500 MG TABLET PO SCH ×2 (09:26→20:23)
[2017-05-28] MEDS: ATORVASTATIN 20 MG TABLET PO SCH (09:26)
[2017-05-28] MEDS: METOPROLOL SUCCINATE 50 MG TAB.SR.24H (TOPROL XL) PO SCH (09:26)
[2017-05-28] MEDS: FERROUS SULFATE 140 MG TABLET.ER PO SCH (09:35)
[2017-05-28 11:24] VITALS: BP_SYST 111
[2017-05-28] MEDS ORDERED: TEMAZEPAM 15 MG CAPSULE PO PRN (14:00)
[2017-05-28] MEDS: HYDROcodone/ACETAMIN 10-325 MG TAB PO PRN ×2 (14:25→20:24)
[2017-05-28 16:34] VITALS: BP_SYST 112
[2017-05-28 20:00] VITALS: BP_SYST 133
[2017-05-28] MEDS: SENNOSIDES 8.6 MG TABLET PO SCH (20:23)
[2017-05-29 02:10] VITALS: BP_SYST 123
[2017-05-29 04:00] VITALS: BP_SYST 124
[2017-05-29 06:26] LABS: BASOPHILS # (AUTO) 0.1 K/uL (0.0-0.2); BASOPHILS % (AUTO) 0.5 % (0.0-2.0); EOSINOPHILS % (AUTO) 0.3 % (0.0-4.0); HEMATOCRIT 30.4 % (36-54); HEMOGLOBIN 10.2 g/dL (14.0-18.0); LYMPHOCYTES # (AUTO) 1.9 K/uL (1.0-5.5); LYMPHOCYTES % (AUTO) 15.3 % (20.5-51.5); MEAN CORPUSCULAR HEMOGLOBIN 31 pg (27-31); MEAN CORPUSCULAR HGB CONC 34 % (32-36); MEAN CORPUSCULAR VOLUME 92 fL (79.0-98.0); MONOCYTES # (AUTO) 1.4 K/uL (0.0-1.0); MONOCYTES % (AUTO) 11.5 % (1.7-9.3); NEUTROPHILS # (AUTO) 8.8 K/uL (1.8-7.7); NEUTROPHILS % (AUTO) 72.4 % (40.0-70.0); PLATELET COUNT (AUTO) 269 K/uL (130-430); RED BLOOD CELL COUNT(AUTO) 3.31 MIL/uL (4.2-6.2); RED CELL DISTRIBUTION WIDTH 14.5 % (9.0-15.0)
[2017-05-29 06:36] LABS: CREATININE 0.71 mg/dL (0.55-1.30); POTASSIUM 3.8 mmol/L (3.5-5.1)
[2017-05-29 06:44] LABS: WHITE BLOOD COUNT (AUTO) 12.2 K/uL (4.8-10.8)
[2017-05-29 07:43] VITALS: BP_SYST 127
[2017-05-29] MEDS: HYDROcodone/ACETAMIN 10-325 MG TAB PO PRN ×2 (08:21→13:13)
[2017-05-29] MEDS: METOPROLOL SUCCINATE 50 MG TAB.SR.24H (TOPROL XL) PO SCH (08:22)
[2017-05-29] MEDS: ATORVASTATIN 20 MG TABLET PO SCH (08:23)
[2017-05-29] MEDS: amLODIPine BESYLATE 5 MG TABLET PO SCH (08:23)
[2017-05-29] MEDS: ASCORBIC ACID 500 MG TABLET PO SCH (08:23)
[2017-05-29] MEDS: MULTIVITAMINS TAB 1 TABLET PO SCH (08:23)
[2017-05-29] MEDS: LOSARTAN POTASSIUM 50 MG TABLET (COZAAR) PO SCH (08:24)
[2017-05-29] MEDS: FERROUS SULFATE 140 MG TABLET.ER PO SCH ×2 (08:29→08:30)
[2017-05-29 13:04] VITALS: BP_SYST 103
[2017-05-29] MEDS: RIVAROXABAN 10 MG TABLET PO SCH (13:13)
[2017-05-29 17:05] VITALS: BP_SYST 117
[2017-05-29 17:12] VITALS: BP_SYST 117
== END 2017-05-29 17:55 | disposition home health service (06) | DRG 470 ==
LOC: SMU 09:39
PROVIDERS: ADMIT Orthopaedic Surgery; ATTEND Orthopaedic Surgery
PROC: 0SRD0J9 Replacement of Left Knee Joint with Synthetic Substitute, Cemented, Open Approach (ICD-10-PCS; principal; 2017-05-27 12:00)
DX: M17.12 Unilateral primary osteoarthritis, left knee (principal); I10 Essential (primary) hypertension; Z96.651 Presence of right artificial knee joint; L29.9 Pruritus, unspecified; Z87.891 Personal history of nicotine dependence; Z79.899 Other long term (current) drug therapy
CPT/HCPCS: 36415; 71020-TC; 73560-TC; 80048; 81003; 85025; 86886; 86900; 86901; 86920; 87081; 88305; 88311; 94010; 94760; 97110-GP; 97116-GP; 97530-GP; C1713; C1776; J0690; J1100; J1200; J1885; J2250; J2704; J2765; J2795; J3010; J3370; J3490; J7050; J7060; J7120; Q0163; Q2037